=== PATIENT | male | born 1975 | race Caucasian/White ===

== ENCOUNTER 2019-09-03 15:15 | Emergency (ER) | payer SELFPAY ==
[2019-09-03 15:27] VITALS: BP 114/76; PULSE 80; RESP 16; TEMP 37.3; O2SAT 98
--- NOTE | 2019-09-03 15:41 | ED.EYEPROB ---
HPI - Eye Problem General Chief complaint: Eye Problems Stated complaint: right eye injury Time Seen by Provider: 09/03/19 15:41 Source: patient and RN notes reviewed Mode of arrival: ambulatory Limitations: no limitations History of Present Illness HPI Narrative: This is a 44 years old male presented office for evaluation of the right eye irritation. He was weed whacking and a piece of rock hit his eye yesterday around noon. He washed his eyes out immediately after accident however he still felt like there is something in there. He also reports photophobia. TD is unknown. Related Data Allergies Allergy/AdvReac Type Severity Reaction Status Date / Time No Known Allergies Allergy Verified 09/03/19 15:40 Review of Systems Review of Systems: Narrative: CONSTITUTIONAL: Denies fever, chills EYES: Reports right eye irritation with watery with foreign body sensation ENT: Denies congestion CARDIOVASCULAR: Denies chest pain, palpitation RESPIRATORY: Denies dyspnea, cough GASTROINTESTINAL: Denies abdominal pain, nausea, vomiting SKIN: Denies rash MUSCULOSKELETAL: Denies acute back pain NEUROLOGIC: Denies lightheaded All other systems reviewed are negative, except as documented in HPI. PMFSH Social History Social History (Updated 09/03/19 @ 16:01 by MERRICK Jeffries) Smoking status: Current every day smoker Comments At time of signature, I agree with nursing past medical, surgical, social and family history. There is no relevant family history pertinent to the presenting complaint. Exam Narrative: Exam Narrative: GENERAL: This is a well-nourished, well-developed patient, in no apparent distress. EYES: PERRL. EMOI. Topical anesthetic was instilled with good anesthesia using 1gtt of opth anesthetic agent (tetracaine). Fluorescein stain of the R eye was performed with uptake of dye noted at 6'oclock. No epithelial defect was noted. NO FB, ulcer or dendritic lesions. Upper lid was everted and no FB or lesions were noted. NO Radu sign. Normal saline irrigation eye solution was performed and the patient tolerated the procedure well, no adverse reaction or complications. CARDIOVASCULAR: Regular rate and rhythm without murmurs, gallops, or rubs. RESPIRATORY: Clear to auscultation. Breath sounds equal bilaterally. No wheezes, rales, or rhonchi. GASTROINTESTINAL: Abdomen soft, non-tender, nondistended. Bowel sounds are active. No guarding. SKIN: warm, intact with no suspicious lesions or rash, good texture and turgor. NEURO: awake, alert, and oriented to person, place and time. There were no obvious focal neurologic abnormalities. Steady gait Cristy Coma Scale Eye Opening: Spontaneous 4 [place] Coma Scale Motor: Obeys Commands 6 [place] Coma Scale Verbal: Oriented 5 Course Vital Signs Vital signs: Vital Signs Temperature 99.1 F 09/03/19 15:27 Pulse Rate 80 09/03/19 15:27 Respiratory Rate 16 09/03/19 15:27 Blood Pressure 114/76 09/03/19 15:27 Pulse Oximetry 98 09/03/19 15:27 Temperature 99.1 F 09/03/19 15:27 Pulse Rate 80 09/03/19 15:27 Respiratory Rate 16 09/03/19 15:27 Blood Pressure 114/76 09/03/19 15:27 Pulse Oximetry 98 09/03/19 15:27 MDM - Eye Problem MDM Narrative Medical decision making narrative: Discussed the benefit of tetanus booster; patient still declined it. Discharge instructions reviewed with patient, as well as provided in writing per nursing staff. The instructions also include specific and strict return/GO TO THE ER as well as f/u information. All questions have been answered, and the patient deny any further questions with discharge and discharge plan. Differential Diagnosis Differential diagnosis: Likely corneal abrasion, conjunctivitis, acute iritis, periorbital cellulitis and corneal ulcer Critical Care Time Critical Care Time Critical Care Time: No Discharge Plan Discharge Clinical Impression: Corneal abrasion Qualifiers: Encounter type
== END 2019-09-03 15:57 | disposition home or self-care (01) ==
PROVIDERS: Emergency Provider Nurse Practitioner
DX: S05.01XA Injury of conjunctiva and corneal abrasion without foreign body, right eye, initial encounter (principal); W20.8XXA Other cause of strike by thrown, projected or falling object, initial encounter; Y93.H2 Activity, gardening and landscaping; F17.200 Nicotine dependence, unspecified, uncomplicated
CPT/HCPCS: 99213; A9270; G0463